=== PATIENT | female | born 1995 | race Asian ===

== ENCOUNTER 2019-05-12 22:17 | Emergency (ER) | payer BC ==
[~2019-05-12] VITALS: Ht 167.6 cm; Wt 49.1 kg
[2019-05-12 22:31] VITALS: Ht 167.6 cm; Wt 49.1 kg
[2019-05-12] MEDS ORDERED: BIRTH CONTROL (22:32)
[2019-05-12 22:45] LABS: HCG URINE NEGATIVE (NEGATIVE)
[2019-05-12 22:46] LABS: APPEARANCE HAZY (CLEAR); BILIRUBIN NEGATIVE (NEGATIVE); COLOR YELLOW (YELLOW); GLUCOSE 50 mg/dL (NEGATIVE); KETONE SMALL mg/dL (NEGATIVE); NITRITE NEGATIVE (NEGATIVE); PROTEIN 1+ mg/dL (NEGATIVE); UROBILINOGEN NORMAL (NORMAL)
[2019-05-12 22:48] LABS: BACTERIA NONE SEEN /hpf (NEGATIVE); EPITHELIAL CELLS RARE /hpf (0-5); WHITE CELLS - URINE NSEEN /hpf (NEGATIVE)
[2019-05-12 22:55] LABS: BASOPHILS 0.1 % (0-2); EOSINOPHILS 0.4 % (0-7); HEMATOCRIT 42.5 % (36.0-48.0); HEMOGLOBIN 14.5 g/dL (12-16); IMMATURE GRANULOCYTES 0.2 % (0-5); LYMPHOCYTES 19.7 % (15-50); MCH 32.2 pg (26.0-34.0); MCHC 34.1 g/dL (31.0-37.0); MCV 94.2 fL (80.0-100.0); MEAN PLATELET VOLUME 9.3 fL (7.4-10.4); MONOCYTES 6.9 % (2-11); NEUTROPHILS 72.7 % (40-80); PLATELET COUNT 244 10x3/uL (130-400); RBC 4.51 10x6/uL (4.00-5.40); RDW 12.3 % (11.5-14.5); WBC 11.5 10x3/uL (4.8-10.8)
[2019-05-12 23:02] LABS: CALC OSMOLALITY 284 mosm/kg (275-300); CALCIUM 8.7 mg/dL (8.5-10.1); CARBON DIOXIDE 24.8 mmol/L (21.0-32.0); CHLORIDE - SERUM 103 mmol/L (98-107); CREATININE - SERUM 0.8 mg/dL (0.6-1.3); GLUCOSE 137 mg/dL (74-106); POTASSIUM - SERUM 3.5 mmol/L (3.5-5.1); SODIUM 142 mmol/L (136-145); UREA NITROGEN 12 mg/dL (7-18); eGFR NON AFRICAN AMERICAN > 90 mL/min (90-120)
[2019-05-12 23:08] LABS: ALBUMIN 3.9 g/dL (3.4-5.0); ALKALINE PHOSPHATASE 40 U/L (46-116); ALT (SGPT) 32 U/L (10-68); AMYLASE - SERUM 84 U/L (25-115); BILIRUBIN - TOTAL 0.26 mg/dL (0.2-1.3); LIPASE 174 U/L (73-393); PROTEIN - SERUM 7.5 g/dL (6.4-8.2)
[2019-05-13] MEDS ORDERED: FLOMAX0.4 MG PO (01:00)
[2019-05-13] MEDS ORDERED: HYDROCODON-ACE1 EAC7 PO (01:00)
[2019-05-13 01:36] VITALS: BP 110/56
== END 2019-05-13 01:37 | disposition home or self-care (01) ==
LOC: D.ER 22:17
PROVIDERS: Family Medicine
DX: N20.1 Calculus of ureter (principal)